=== PATIENT | male | born 1955 | race Two or more races ===

== ENCOUNTER 2018-02-16 19:49 | Emergency (ER) | payer MEDICAID, OTHER ==
[~2018-02-16] VITALS: Ht 167.6 cm; Wt 72.6 kg
[2018-02-17 01:44] LABS: Urine Bacteria NONE SEEN /hpf (None Seen); Urine Blood 2+ /uL (Negative); Urine Mucus FEW (None Seen); Urine Specific Gravity 1.012 (1.001-1.035); Urine WBC 2 /hpf (0 - 3)
[2018-02-17 02:03] VITALS: BP 107/58
[2018-02-17 02:34] LABS: Basophils # (auto) 0 uL; Basophils % (auto) 0.3 % (0.0-2.0); Eosinophils # (auto) 0 uL; Eosinophils % (auto) 0.1 % (0.0-7.0); Hemoglobin 14.8 g/dL (13.5-17.5); Lymphocytes # (auto) 1.3 uL; Lymphocytes % (auto) 11.1 % (10.0-50.0); Mean Corpuscular Hemoglobin 31.6 pg (28.0-32.0); Mean Corpuscular Hgb Conc. 34.3 g/dL (32.0-36.0); Mean Corpuscular Volume 92.1 fL (80.0-100.0); Monocytes # (auto) 0.7 uL; Monocytes % (auto) 6.1 % (0.0-12.0); Neutrophils # (auto) 9.4 uL; Neutrophils % (auto) 82.4 % (37.0-80.0); Platelet Count (auto) 205 10^3/uL (140-450); Red Blood Cells 4.67 10^6/uL (4.5-5.90); Red Cell Distribution Width 12.6 % (11.8-14.3); White Blood Cell 11.4 10^3/uL (4.4-10.8)
[2018-02-17 02:51] LABS: Albumin 3.5 g/dL (3.4-5.0); BUN/Creatinine Ratio 16.4; Calcium 8.1 mg/dL (8.5-10.1); Potassium 3.8 mmol/L (3.5-5.1)
[2018-02-17 02:54] LABS: Bilirubin, Total 0.8 mg/dL (0.2-1.0); Total Protein 7.3 g/dL (6.4-8.2)
== END 2018-02-17 03:33 | disposition home or self-care (01) ==
LOC: ER 19:54
DX: R33.9 Retention of urine, unspecified (principal); R42 Dizziness and giddiness
CPT/HCPCS: 36415; 51702; 80053; 81001; 84154; 85025

== ENCOUNTER 2018-02-20 11:54 | Emergency (ER) | payer MEDICAID ==
[~2018-02-20] VITALS: Ht 167.6 cm; Wt 72.6 kg
[2018-02-20 13:30] VITALS: BP 131/59
== END 2018-02-20 15:49 | disposition home or self-care (01) ==
LOC: ER 11:54
DX: Z46.6 Encounter for fitting and adjustment of urinary device (principal)

== ENCOUNTER 2018-02-23 17:48 | Emergency (ER) | payer MEDICAID ==
[~2018-02-23] VITALS: Ht 167.6 cm; Wt 72.6 kg
[2018-02-23] MEDS ORDERED: ONDANSETRON HCL 4 MG/2 ML VIAL IV ONE (23:00)
[2018-02-23] MEDS ORDERED: MORPHINE SULFATE 4 MG/ML SYR/VIAL IV ONE (23:00)
[2018-02-23 23:40] LABS: Urine Bacteria MANY /hpf (None Seen); Urine Blood 2+ /uL (Negative); Urine Specific Gravity 1.008 (1.001-1.035); Urine WBC 142 /hpf (0 - 3)
[2018-02-24] MEDS ORDERED: CIPROFLOXACIN 400MG/200ML 200 ML IV ONE (00:45)
[2018-02-24 02:03] VITALS: BP 137/68
== END 2018-02-24 03:45 | disposition home or self-care (01) ==
LOC: ER 17:48
DX: N39.0 Urinary tract infection, site not specified (principal); T83.038A Leakage of other urinary catheter, initial encounter; Y84.6 Urinary catheterization as the cause of abnormal reaction of the patient, or of later complication, without mention of misadventure at the time of the procedure; Y92.89 Other specified places as the place of occurrence of the external cause
CPT/HCPCS: 51702; 76705; 81001; 96365; 96375; 99285; J0744; J2270; J2405